=== PATIENT | female | born 1945 | race Caucasian/White ===

== ENCOUNTER 2018-04-14 10:49 | Inpatient (IN) | payer MEDICARE, BC ==
[2018-04-14] MEDS ORDERED: SODIUM CHLORIDE 0.9% 500 ML 500 ML IV STA (11:16)
[2018-04-14] MEDS ORDERED: ONDANSETRON 4 MG/2 ML VIAL IVP STA ×2 (11:17→14:29)
[2018-04-14] MEDS ORDERED: LABETALOL SYRINGE 5 MG/ML IVP STA (11:17)
--- NOTE | 2018-04-14 11:42 | ED ---
Recheck HPI - General Source: patient, RN notes reviewed Mode of arrival: wheelchair Limitations: no limitations <Juan Holm - Last Filed: 04/14/18 13:08> <Eliazar Gustafson - Last Filed: 04/14/18 13:35> - General Chief Complaint: Recheck/Abnormal Lab/Rx Stated Complaint: HIGH BLOOD PRESSURE, CHEST PAIN Time Seen by Provider: 04/14/18 11:08 - History of Present Illness Initial Comments: 72-year-old female sent emergency Department with chief complaint of hypertension. Patient states that she went to her dentist and had a tooth extracted. Her blood pressure was elevated at time but they still perform this procedure. Patient states her son checked her blood pressure this morning and it was 220/120. Patient states that she does not have a history of hypertension though she has not seen her PCP in 5 years. Patient then no current medications other than tell with codeine that was given to her along with ibuprofen by the dentist. Patient states she feels nauseated at this time. She did have some chest discomfort last night. She has no current shortness breath, headache or dizziness. She states she does feel slightly off. Eyes back pain, neck pain, jaw pain or extremity pain (Juan Holm) - Related Data Home Medications Medication Instructions Recorded Confirmed No Known Home Medications 04/14/18 04/14/18 Allergies Allergy/AdvReac Type Severity Reaction Status Date / Time No Known Allergies Allergy Verified 04/14/18 12:02 Review of Systems ROS Other: All systems not noted in ROS Statement are negative. <Juan Holm - Last Filed: 04/14/18 13:08> ROS Other: All systems not noted in ROS Statement are negative. <Eliazar Gustafson - Last Filed: 04/14/18 13:35> ROS Statement: Those systems with pertinent positive or pertinent negative responses have been documented in the HPI. Past Medical History Past Medical History: No Reported History History of Any Multi-Drug Resistant Organisms: None Reported Past Surgical History: Cholecystectomy Past Psychological History: No Psychological Hx Reported Smoking Status: Never smoker Past Alcohol Use History: None Reported Past Drug Use History: None Reported <Juan Holm - Last Filed: 04/14/18 13:08> General Exam Limitations: no limitations General appearance: alert, in no apparent distress Head exam: Present: atraumatic, normocephalic, normal inspection ENT exam: Present: mucous membranes moist. Absent: normal exam, normal oropharynx (Recent tooth extraction right upper) Neck exam: Present: normal inspection, full ROM. Absent: tenderness, meningismus, lymphadenopathy Respiratory exam: Present: normal lung sounds bilaterally. Absent: respiratory distress, wheezes, rales, rhonchi, stridor Cardiovascular Exam: Present: regular rate, normal rhythm, normal heart sounds. Absent: systolic murmur, diastolic murmur, rubs, gallop, clicks GI/Abdominal exam: Present: soft, normal bowel sounds. Absent: distended, tenderness, guarding, rebound, rigid Neurological exam: Present: alert, oriented X3, CN II-XII intact Skin exam: Present: warm, dry, intact, normal color. Absent: rash <Juan Holm - Last Filed: 04/14/18 13:08> Course <Juan Holm - Last Filed: 04/14/18 13:08> <Eliazar Gustafson - Last Filed: 04/14/18 13:35> Vital Signs 04/14/18 04/14/18 04/14/18 10:55 11:38 11:43 Temperature 97.8 F Pulse Rate 74 71 Pulse Rate [ 68 Heel Gouger ] Respiratory 16 16 Rate Blood Pressure 217/129 193/120 O2 Sat by Pulse 99 97 Oximetry 04/14/18 12:39 Temperature Pulse Rate 56 L Pulse Rate [ Heel Gouger ] Respiratory 18 Rate Blood Pressure 203/99 O2 Sat by Pulse 95 Oximetry - Reevaluation(s) Reevaluation #1: 04/14/18 13:33 PA supervision: I proceeded [id number] evaluation the patient did discuss the findings with her family members. Patient does present with uncontrolled blood pressure. Physical exam is unremarkable. Heart tones are within normal limits. Blood pressure is elevated. Patient will be admitted I do agree with the assessment and plan. (Eliazar Gustafson) Medical Decision Making - Lab Data Result diagrams: 04/14/18 11:35 04/14/18 11:35 <Juan Holm - Last Filed: 04/14/18 13:08> - Lab Data Result diagrams: 04/14/18 11:35 04/14/18 11:35 <Eliazar Gustafson - Last Filed: 04/14/18 13:35> - Medical Decision Making 72-year-old female present for hypertension. Patient did have some chest discomfort last night. Patient chest pain-free at this time though be admitted for cardiac enzymes, hypertension urgency. Patient was given labetalol 20, hydralazine 10. Patient remains hypertensive (Juan Holm) - Lab Data Lab Results 04/14/18 04/14/18 04/14/18 Range/Units 11:35 11:35 11:35 WBC 7.7 (3.8-10.6) k/uL RBC 5.37 (3.80-5.40) m/uL Hgb 15.6 (11.4-16.0) gm/dL Hct 47.6 H (34.0-46.0) % MCV 88.7 (80.0-100.0) fL MCH 29.1 (25.0-35.0) pg MCHC 32.8 (31.0-37.0) g/dL RDW 13.5 (11.5-15.5) % Plt Count 245 (150-450) k/uL Neutrophils % 80 % Lymphocytes % 12 % Monocytes % 5 % Eosinophils % 1 % Basophils % 1 % Neutrophils # 6.2 (1.3-7.7) k/uL Lymphocytes # 0.9 L (1.0-4.8) k/uL Monocytes # 0.4 (0-1.0) k/uL Eosinophils # 0.1 (0-0.7) k/uL Basophils # 0.1 (0-0.2) k/uL PT (9.0-12.0) sec INR (<1.2) APTT (22.0-30.0) sec Sodium 141 (137-145) mmol/L Potassium 3.5 (3.5-5.1) mmol/L Chloride 103 (98-107) mmol/L Carbon Dioxide 25 (22-30) mmol/L Anion Gap 13 mmol/L BUN 21 H (7-17) mg/dL Creatinine 1.27 H (0.52-1.04) mg/dL Est GFR (CKD-EPI)AfAm 48 (>60 ml/min/1.73 sqM) Est GFR (CKD-EPI)NonAf 42 (>60 ml/min/1.73 sqM) Glucose 104 H (74-99) mg/dL Calcium 9.6 (8.4-10.2) mg/dL Magnesium 2.1 (1.6-2.3) mg/dL Total Bilirubin 2.0 H (0.2-1.3) mg/dL AST 23 (14-36) U/L ALT 26 (9-52) U/L Alkaline Phosphatase 107 (38-126) U/L Total Creatine Kinase 73 (30-135) U/L CK-MB (CK-2) 0.9 (0.0-2.4) ng/mL CK-MB (CK-2) Rel Index 1.2 Troponin I <0.012 (0.000-0.034) ng/mL Total Protein 7.5 (6.3-8.2) g/dL Albumin 4.5 (3.5-5.0) g/dL 04/14/18 Range/Units 11:35 WBC (3.8-10.6) k/uL RBC (3.80-5.40) m/uL Hgb (11.4-16.0) gm/dL Hct (34.0-46.0) % MCV (80.0-100.0) fL MCH (25.0-35.0) pg MCHC (31.0-37.0) g/dL RDW (11.5-15.5) % Plt Count (150-450) k/uL Neutrophils % % Lymphocytes % % Monocytes % % Eosinophils % % Basophils % % Neutrophils # (1.3-7.7) k/uL Lymphocytes # (1.0-4.8) k/uL Monocytes # (0-1.0) k/uL Eosinophils # (0-0.7) k/uL Basophils # (0-0.2) k/uL PT 10.0 (9.0-12.0) sec INR 0.9 (<1.2) APTT 22.7 (22.0-30.0) sec Sodium (137-145) mmol/L Potassium (3.5-5.1) mmol/L Chloride (98-107) mmol/L Carbon Dioxide (22-30) mmol/L Anion Gap mmol/L BUN (7-17) mg/dL Creatinine (0.52-1.04) mg/dL Est GFR (CKD-EPI)AfAm (>60 ml/min/1.73 sqM) Est GFR (CKD-EPI)NonAf (>60 ml/min/1.73 sqM) Glucose (74-99) mg/dL Calcium (8.4-10.2) mg/dL Magnesium (1.6-2.3) mg/dL Total Bilirubin (0.2-1.3) mg/dL AST (14-36) U/L ALT (9-52) U/L Alkaline Phosphatase (38-126) U/L Total Creatine Kinase (30-135) U/L CK-MB (CK-2) (0.0-2.4) ng/mL CK-MB (CK-2) Rel Index Troponin I (0.000-0.034) ng/mL Total Protein (6.3-8.2) g/dL Albumin (3.5-5.0) g/dL - EKG Data EKG Comments: EKG performed at 11:19sinus rhythm with rate 65. 176 QRS 86 QT/QTC 390/450 ( Juan Holm) Disposition <Juan Holm - Last Filed: 04/14/18 13:08> <Eliazar Gustafson - Last Filed: 04/14/18 13:35> Clinical Impression: Uncontrolled hypertension, Chest pain Disposition: ADMITTED IP TO THIS HOSP Condition: Fair
[2018-04-14 12:02] LABS: Basophils # (A) 0.1 k/uL (0-0.2); Basophils % (A) 1 %; Eosinophils # (A) 0.1 k/uL (0-0.7); Eosinophils % (A) 1 %; HCT 47.6 % (34.0-46.0); HGB 15.6 gm/dL (11.4-16.0); Lymphocytes # (A) 0.9 k/uL (1.0-4.8); Lymphocytes % (A) 12 %; MCH 29.1 pg (25.0-35.0); MCHC 32.8 g/dL (31.0-37.0); MCV 88.7 fL (80.0-100.0); Mean Platelet Volume 6.6; Monocytes # (A) 0.4 k/uL (0-1.0); Monocytes % (A) 5 %; Neutrophils # (A) 6.2 k/uL (1.3-7.7); Neutrophils % (A) 80 %; Platelet Count 245 k/uL (150-450); RBC 5.37 m/uL (3.80-5.40); RDW 13.5 % (11.5-15.5); WBC 7.7 k/uL (3.8-10.6)
[2018-04-14 12:10] LABS: INR 0.9 (<1.2); Partial Thromboplastin Time 22.7 sec (22.0-30.0)
[2018-04-14 12:12] LABS: Albumin 4.5 g/dL (3.5-5.0); Calcium 9.6 mg/dL (8.4-10.2); Magnesium 2.1 mg/dL (1.6-2.3); Potassium 3.5 mmol/L (3.5-5.1); Total Protein 7.5 g/dL (6.3-8.2)
[2018-04-14 12:21] LABS: Creatine Kinase 73 U/L (30-135)
[2018-04-14 12:34] LABS: Creatine Kinase MB 0.9 ng/mL (0.0-2.4); Troponin I <0.012 ng/mL (0.000-0.034)
[2018-04-14] MEDS ORDERED: hydrALAZINE HCL 20 MG/ML 1 ML VIAL IVP STA (12:41)
--- NOTE | 2018-04-14 12:57 | XR ---
EXAMINATION TYPE: XR chest 2V DATE OF EXAM: 04/14/2018 COMPARISON: NONE HISTORY: Chest pain and vomiting TECHNIQUE: Frontal and lateral views of the chest are obtained. FINDINGS: Patient is rotated. There are prominent lung volumes which may be indicative of underlying COPD. The aorta is dense and ectatic, tortuous. No evident airspace disease, pneumothorax, or pleural effusion. There are overlying cardiac leads. Minimal patchy densities at the costophrenic angles may reflect scarring or atelectasis. IMPRESSION: No acute cardiopulmonary process. Additional findings above.
[2018-04-14] MEDS ORDERED: ASPIRIN 81 MG PO STA (13:10)
[2018-04-14] MEDS ORDERED: NITROGLYCERIN SL TABS 0.4 MG TAB SUBLINGUAL PRN (13:10)
[2018-04-14] MEDS ORDERED: HEPARIN SODIUM,PORCINE 5,000 UNIT/ML 1 ML VIAL IV ONE (13:10)
--- NOTE | 2018-04-14 13:32 | P.HPIM ---
History of Present Illness This is a pleasant 72 years old female with no significant past medical history. Presents because of high blood pressure. Patient knew About her high blood pressure when she visited her dentist for her right upper tooth extraction. It was noticed that she had high blood pressure. Her son check her blood pressure this morning it was 220/120, so she decided to come to emergency room. Patient also complained from chest pain yesterday that lasted for short time. Central nonradiating nonspecific chest pain that woke her up from sleep associated with nausea, possible vomiting per [id number] at bedside however patient denies sweating. No dizziness or syncope. No dyspnea. Currently her chest pain is resolved. She is remote exit smoker many many years when she was young. No alcohol or illicit drugs. EKG showing sinus rhythm with sinus arrhythmia at 65 BPM. QTC of 405. No significant ST-T changes. Chest x-ray: No significant acute changes, possible COPD. In the emergency room patient got labetalol and hydralazine. Also she got aspirin and heparin. and started on heparin drip. Review of Systems CONSTITUTIONAL: No fever, no malaise, no fatigue. HEENT: No recent visual problems or hearing problems. Denied any sore throat. CARDIOVASCULAR: No orthopnea, PND, no palpitations, no syncope. PULMONARY: No shortness of breath, no cough, no hemoptysis. GASTROINTESTINAL: No diarrhea, no nausea, no vomiting, no abdominal pain. Normoactive bowel sounds. NEUROLOGICAL: No headaches, no weakness, no numbness. HEMATOLOGICAL: Denies any bleeding or petechiae. GENITOURINARY: Denies any burning micturition, frequency, or urgency. MUSCULOSKELETAL/RHEUMATOLOGICAL: Denies any joint pain, swelling, or any muscle pain. ENDOCRINE: Denies any polyuria or polydipsia. Past Medical History Past Medical History: No Reported History History of Any Multi-Drug Resistant Organisms: None Reported Past Surgical History: Cholecystectomy Past Psychological History: No Psychological Hx Reported Smoking Status: Never smoker Past Alcohol Use History: None Reported Past Drug Use History: None Reported Medications and Allergies Home Medications Medication Instructions Recorded Confirmed Type No Known Home Medications 04/14/18 04/14/18 History Allergies Allergy/AdvReac Type Severity Reaction Status Date / Time No Known Allergies Allergy Verified 04/14/18 12:02 Physical Exam Vitals: Vital Signs Temp Pulse Pulse Resp BP Pulse Ox 04/14/18 12:39 56 L 18 203/99 95 04/14/18 11:43 68 04/14/18 11:38 71 16 193/120 97 04/14/18 10:55 97.8 F 74 16 217/129 99 Intake and Output 04/13/18 04/14/18 04/14/18 22:59 06:59 14:59 Other: Weight 77.111 kg GENERAL: The patient is alert and oriented x3, not in any acute distress. Well developed, well nourished. HEENT: Pupils are round and equally reacting to light. EOMI. No scleral icterus. No conjunctival pallor. Normocephalic, atraumatic. No pharyngeal erythema. No thyromegaly. CARDIOVASCULAR: S1 and S2 present. No murmurs, rubs, or gallops. PULMONARY: Chest is clear to auscultation, no wheezing or crackles. ABDOMEN: Soft, nontender, nondistended, normoactive bowel sounds. No palpable organomegaly. MUSCULOSKELETAL: No joint swelling or deformity. EXTREMITIES: No cyanosis, clubbing, or pedal edema. NEUROLOGICAL: Gross neurological examination did not reveal any focal deficits. SKIN: No rashes. Results CBC & Chem 7: 04/14/18 11:35 04/14/18 11:35 Labs: Abnormal Lab Results - Last 24 Hours (Table) 04/14/18 04/14/18 Range/Units 11:35 11:35 Hct 47.6 H (34.0-46.0) % Lymphocytes # 0.9 L (1.0-4.8) k/uL BUN 21 H (7-17) mg/dL Creatinine 1.27 H (0.52-1.04) mg/dL Glucose 104 H (74-99) mg/dL Total Bilirubin 2.0 H (0.2-1.3) mg/dL Assessment and Plan Assessment: Hypertensive urgency Essential hypertension, no diagnoses Chest pain, rule out cardiac causes Plan: This is a pleasant 72 years old female who presents because of hypertensive urgency and chest pain. Admits patient with cardiology consultation. Serial troponins and EKG. continue with blood pressure medication. Check lipid panel. Labs and medication were reviewed.. Continue same treatment. Continue with symptomatic treatment. Resume home medication. Monitor lytes and vitals. DVT and GI prophylaxis. Further recommendations of the clinical course of the patient DVT prophylaxis: Subcutaneous heparin GI Prophylaxis: Pepcid Prognosis is guarded
[2018-04-14] MEDS: HEPARIN SOD,PORK IN 0.45% NACL 25,000 UNIT in 0.45% NACL 1 500ML.BAG IV SCH (13:53)
[2018-04-14 18:42] LABS: Creatine Kinase 71 U/L (30-135)
[2018-04-14 18:54] LABS: Troponin I <0.012 ng/mL (0.000-0.034)
[2018-04-14] MEDS: ACETAMINOPHEN TAB 325 MG TAB PO PRN (19:57)
[2018-04-14] MEDS: hydrALAZINE HCL 25 MG TAB PO PRN (20:06)
[2018-04-15] MEDS: ACETAMINOPHEN TAB 325 MG TAB PO PRN (02:21)
[2018-04-15 02:37] LABS: Mean Platelet Volume 6.7; Platelet Count 239 k/uL (150-450)
[2018-04-15 02:52] LABS: Cholesterol 225 mg/dL (<200); HDL Cholesterol 63 mg/dL (40-60); LDL Cholesterol,Calculated 149 mg/dL (0-99); Triglycerides 65 mg/dL (<150)
[2018-04-15 02:59] LABS: Creatine Kinase 59 U/L (30-135)
[2018-04-15 03:12] LABS: Creatine Kinase MB 0.8 ng/mL (0.0-2.4); Troponin I <0.012 ng/mL (0.000-0.034)
[2018-04-15] MEDS: hydrALAZINE HCL 25 MG TAB PO PRN ×2 (03:31→19:49)
--- NOTE | 2018-04-15 08:45 | P.CRDCN ---
History of Present Illness Consult date: 04/15/18 Requesting physician: Cordell E Sheet Consult reason: chest pain, hypertension Chief complaint: htn History of present illness: This is a pleasant 72-year-old female with prior documented history of hypertension, she states that she used to take blood pressure medications but her blood pressure went quite low and ultimately she was taken off of them. She is a nondiabetic, no hyperlipidemia, nonsmoker, no alcohol, she states that she walks and rides her bike daily. Patient recently was having some issues with an abscess to her, last week had a tooth pulled, she had been on amoxicillin prior to that. At the time of our appointment when she had her tooth pulled, she states that her blood pressure was running high. She went for a follow-up at her dentist, and again her blood pressure was noted to be quite high, states that she tried to get into her primary care doctor's office, Dr. Stokes, or into the walk-in clinic, but was directed to come to the emergency room for further evaluation. Patient does state that when her blood pressure was extremely high she noticed some chest pressure and heaviness, but states that she felt that her entire body as well. Her blood pressure on arrival here was 217/129, heart rate in the 70s, 99% on room air. Blood pressure this morning when he 2/80, heart rate in the 70s, 97% on room air. Patient does state that she has been under a considerable amount of stress for the past few years. White blood cell count 7.7, hemoglobin 15.6, platelet count 239. Sodium 141, potassium 3.5, BUN 21, creatinine 1.2. Troponins are negative 3. Cholesterol is 225, LDL 149 and HDL 63. At the time of my examination this morning, patient actually feels quite well and is hoping to potentially be discharged home today. Past Medical History Past Medical History: Hypertension, Osteoarthritis (OA) Additional Past Medical History / Comment(s): pt stated 6 years ago was taking meds for hyertension but was taken off of it because bp went to low. History of Any Multi-Drug Resistant Organisms: None Reported Past Surgical History: Cholecystectomy, Tubal Ligation Additional Past Surgical History / Comment(s): 04/11/18 had tooth extraction Past Anesthesia/Blood Transfusion Reactions: No Reported Reaction Additional Past Anesthesia/Blood Transfusion Reaction / Comment(s): "has never received any blood transfusions" Smoking Status: Former smoker - Past Family History Mother Additional Family Medical History / Comment(s): from "hardening of the arteris" Father Family Medical History: CVA/TIA Medications and Allergies Home Medications Medication Instructions Recorded Confirmed Type No Known Home Medications 04/14/18 04/14/18 History Allergies Allergy/AdvReac Type Severity Reaction Status Date / Time No Known Allergies Allergy Verified 04/14/18 12:02 Physical Exam Vitals: Vital Signs Temp Pulse Pulse Resp BP BP Pulse Ox 04/15/18 03:21 98.2 F 72 18 182/86 97 04/15/18 00:00 68 18 172/80 96 04/14/18 20:00 98.6 F 63 18 178/85 95 04/14/18 16:00 97.7 F 72 16 171/83 96 04/14/18 15:28 98.2 F 69 16 176/108 95 04/14/18 14:42 66 18 182/94 95 04/14/18 13:48 63 16 187/89 96 04/14/18 12:39 56 L 18 203/99 95 04/14/18 11:43 68 04/14/18 11:38 71 16 193/120 97 04/14/18 10:55 97.8 F 74 16 217/129 99 Intake and Output 04/14/18 04/15/18 04/15/18 22:59 06:59 14:59 Intake Total 156.867 84 222 Balance 156.867 84 222 Intake: IV 36 84 Heparin Sod,Pork in 0.45% 36 84 NaCl 25,000 unit In 0.45 % NaCl 1 500ml.bag @ 12 UNITS/KG/HR 18.5 mls/hr IV .Q24H NAOMY Rx#: [id number] Intake, IV Titration 120.867 Amount Heparin Sod,Pork in 0.45% 120.867 NaCl 25,000 unit In 0.45 % NaCl 1 500ml.bag @ 12 UNITS/KG/HR 18.5 mls/hr IV .Q24H NAOMY Rx#: [id number] Oral 222 Other: # Voids 1 1 Weight 75.9 kg PHYSICAL EXAMINATION: GENERAL: 72-year-old female in no acute distress at the time of my examination HEENT: Head is atraumatic, normocephalic. Pupils equal, round. Sclera anicteric. Conjunctiva are clear. Mucous membranes of the mouth are moist. Neck is supple. There is no elevated jugular venous pressure. No carotid bruit is heard. HEART EXAMINATION: Heart S1 and S2 systolic murmur is heard. CHEST EXAMINATION: Lungs are clear to auscultation and precussion. No chest wall tenderness is noted on palpation or with deep breathing. ABDOMEN: Soft, nontender. Bowel sounds are heard. No organomegaly noted. EXTREMITIES: 2+ peripheral pulses with no evidence of peripheral edema and no calf tenderness noted. NEUROLOGIC patient is awake, alert and oriented 3 . . Results 04/15/18 02:10 04/14/18 11:35 Cardiac Enzymes 04/14/18 04/14/18 04/14/18 Range/Units 11:35 11:35 17:47 AST 23 (14-36) U/L CK-MB (CK-2) 0.9 1.0 (0.0-2.4) ng/mL Troponin I <0.012 <0.012 (0.000-0.034) ng/mL 04/15/18 Range/Units 02:10 AST (14-36) U/L CK-MB (CK-2) 0.8 (0.0-2.4) ng/mL Troponin I <0.012 (0.000-0.034) ng/mL Coagulation 04/14/18 04/14/18 04/15/18 Range/Units 11:35 19:57 02:10 PT 10.0 (9.0-12.0) sec APTT 22.7 82.9 H 61.3 H (22.0-30.0) sec Lipids 04/15/18 Range/Units 02:10 Triglycerides 65 (<150) mg/dL Cholesterol 225 H (<200) mg/dL HDL Cholesterol 63 H (40-60) mg/dL CBC 04/14/18 04/15/18 Range/Units 11:35 02:10 WBC 7.7 (3.8-10.6) k/uL RBC 5.37 (3.80-5.40) m/uL Hgb 15.6 (11.4-16.0) gm/dL Hct 47.6 H (34.0-46.0) % Plt Count 245 239 (150-450) k/uL Comprehensive Metabolic Panel 04/14/18 Range/Units 11:35 Sodium 141 (137-145) mmol/L Potassium 3.5 (3.5-5.1) mmol/L Chloride 103 (98-107) mmol/L Carbon Dioxide 25 (22-30) mmol/L BUN 21 H (7-17) mg/dL Creatinine 1.27 H (0.52-1.04) mg/dL Glucose 104 H (74-99) mg/dL Calcium 9.6 (8.4-10.2) mg/dL AST 23 (14-36) U/L ALT 26 (9-52) U/L Alkaline Phosphatase 107 (38-126) U/L Total Protein 7.5 (6.3-8.2) g/dL Albumin 4.5 (3.5-5.0) g/dL Current Medications Generic Name Dose Route Start Last Admin Trade Name Freq PRN Reason Stop Dose Admin Acetaminophen 650 mg 04/14/18 18:32 04/15/18 02:21 Tylenol Tab PO 650 mg Q6HR PRN Administration Fever and/ or Pain Aspirin 325 mg 04/15/18 09:00 Aspirin PO DAILY [facility] Hydralazine HCl 25 mg 04/14/18 13:31 04/15/18 03:31 Apresoline PO 25 mg TID PRN Administration Blood Pressure - High Heparin Sodium/Sodium Chloride 500 mls @ 18.5 mls/hr 04/14/18 13:15 04/14/18 20:25 25,000 unit/ Sodium Chloride IV 10 units/kg/hr .Q24H NAOMY 15.42 mls/hr Titration Protocol 12 UNITS/KG/HR Metoprolol Tartrate 25 mg 04/15/18 09:00 Lopressor PO BID NAOMY Nitroglycerin 0.4 mg 04/14/18 13:10 Nitrostat SUBLINGUAL Q5M PRN Chest Pain Intake and Output 04/14/18 04/15/18 04/15/18 22:59 06:59 14:59 Intake Total 156.867 84 222 Balance 156.867 84 222 Intake: IV 36 84 Heparin Sod,Pork in 0.45% 36 84 NaCl 25,000 unit In 0.45 % NaCl 1 500ml.bag @ 12 UNITS/KG/HR 18.5 mls/hr IV .Q24H NAOMY Rx#: [id number] Intake, IV Titration 120.867 Amount Heparin Sod,Pork in 0.45% 120.867 NaCl 25,000 unit In 0.45 % NaCl 1 500ml.bag @ 12 UNITS/KG/HR 18.5 mls/hr IV .Q24H NAOMY Rx#: [id number] Oral 222 Other: # Voids 1 1 Weight 75.9 kg 04/15/18 02:10 04/14/18 11:35 EKG Interpretations (text) EKG shows a normal sinus rhythm evidence of left ventricular hypertrophy Assessment and Plan Plan: Assessment and plan #1 hypertensive urgency #2 history of hypertension, patient used to be on blood pressure medications but states that ultimately she stopped taking them because her blood pressure was low. #3 chest pain, atypical for acute coronary syndrome. Troponins have been negative 3. EKG shows normal sinus rhythm with evidence of left ventricular hypertrophy. #4 mild renal insufficiency #5 hyperlipidemia, untreated Plan We will obtain an echocardiogram with Doppler study. We will also start the patient on Norvasc, beta jordan was initiated in the emergency room. Optimize blood pressure control. Once her blood pressure stabilized, we recommend to the patient to have a stress test. We will also start the patient on a statin. Further recommendations to follow. DNP note has been reviewed, I agree with a documented findings and plan of care. Patient was seen and examined.
[2018-04-15] MEDS ORDERED: ASPIRIN 325 MG TAB PO SCH (09:00)
[2018-04-15] MEDS ORDERED: amLODIPine 5 MG TAB PO SCH (09:00)
[2018-04-15] MEDS: ASPIRIN 81 MG PO SCH (09:11)
[2018-04-15] MEDS: METOPROLOL TARTRATE 25 MG TAB PO SCH ×2 (09:11→19:53)
--- NOTE | 2018-04-15 11:18 | ECHOF ---
Referral Reason:htn MEASUREMENTS -------- HEIGHT: 157.5 cm WEIGHT: 74.8 kg BP: RVIDd: 3.1 cm (< 3.3) IVSd: 1.1 cm (0.6 - 1.1) LVIDd: 3.7 cm (3.9 - 5.3) LVPWd: 1.4 cm (0.6 - 1.1) IVSs: 1.6 cm LVIDs: 3.2 cm LVPWs: 1.3 cm LA Diam: 3.3 cm (2.7 - 3.8) LAESV Index (A-L): 27.81 ml/m Ao Diam: 3.4 cm (2.0 - 3.7) AV Cusp: 1.5 cm (1.5 - 2.6) MV EXCURSION: 12.495 mm (> 18.000) MV EF SLOPE: 31 mm/s (70 - 150) EPSS: 0.6 cm MV E Nicho: 0.48 m/s MV DecT: 487 ms MV A Nicho: 0.96 m/s MV E/A Ratio: 0.50 AR PHT: 643 ms RAP: 5.00 mmHg RVSP: 30.69 mmHg FINDINGS -------- Sinus rhythm. This was a technically adequate study. The left ventricular size is normal. There is borderline concentric left ventricular hypertrophy. Overall left ventricular systolic function is normal with, an EF between 55 - 60 %. The right ventricle is normal in size. The left atrial size is normal. Normal LA size by volume 22+/-6 ml/m2. The right atrial size is normal. The aortic valve is trileaflet and appears structurally normal. There is mild aortic regurgitation. The mitral valve is normal. Mild mitral regurgitation is present. Mild tricuspid regurgitation present. Right ventricular systolic pressure is normal at < 35 mmHg. The right ventricular systolic pressure, as measured by Doppler, is 30.69mmHg. There is no pulmonic regurgitation present. The aortic root size is normal. There is no pericardial effusion. CONCLUSIONS -------- 1. Sinus rhythm. 2. The left ventricular size is normal. 3. There is borderline concentric left ventricular hypertrophy. 4. Overall left ventricular systolic function is normal with, an EF between 55 - 60 %. 5. The left atrial size is normal. 6. There is mild aortic regurgitation. 7. Mild mitral regurgitation is present. 8. Mild tricuspid regurgitation present. 9. Right ventricular systolic pressure is normal at < 35 mmHg. 10. There is no pulmonic regurgitation present. 11. The aortic root size is normal. 12. There is no pericardial effusion. [employer]CTOR [employer]: Vikki Olea RDCS
--- NOTE | 2018-04-15 12:50 | CDI ---
un Documentation Clarification Form Date: 04/15/2018 12:40:45 PM From: Sandra Espinosa RN, CCDS Admit Date: 04/14/2018 1:09:00 PM Patient Name: Caryl Mariano Visit Number: [id number] ATTENTION: The Clinical Documentation Specialists (CDI) and [facility] Coding Staff appreciate your assistance in clarifying documentation. Please respond to the clarification below the line at the bottom and electronically sign. The CDI & [facility] Coding staff will review the response and follow-up if needed. Please note: Queries are made part of the Legal Health Record. If you have any questions, please contact the author of this message via ITS. Dr. Cordell Lakhani Renal insuffiency was documented in the Cardiology Consult and requires further specificity. History/Risk Factors: Patients baseline BUN/CR/GFR: no baseline available, no other encounters at this facility Clinical Indicators: Current BUN/Cr/GFR: 30/05. Treatment: IVF: 500 CC fluid bolus In order to capture the severity of condition, please clarify if the condition signifies: Acute renal failure, Please specify etiology (if known): Cortical Necrosis Medullary Necrosis Tubular Necrosis Acute kidney injury Acute on chronic renal failure CKD Stage 1 GFR >90 CKD Stage 2 GFR 60-89 CKD Stage 3 GFR 30-59 CKD Stage 4 GFR 15-29 CKD Stage 5 GFR <15 Chronic renal failure/Chronic Kidney disease (CKD) please stage (if known): CKD Stage 1 GFR >90 CKD Stage 2 GFR 60-89 CKD Stage 3 GFR 30-59 CKD Stage 4 GFR 15-29 CKD Stage 5 GFR <15 ESRD Other, please specify Unable to determine unable to determine MTDD
--- NOTE | 2018-04-15 13:45 | P.PN ---
Subjective On-call hospitalist covering for Dr. Stokes. This is a pleasant 72 years old female with no significant past medical history. Presents because of high blood pressure. Patient knew About her high blood pressure when she visited her dentist for her right upper tooth extraction. It was noticed that she had high blood pressure. Her son check her blood pressure this morning it was 220/120, so she decided to come to emergency room. Patient also complained from chest pain yesterday that lasted for short time. Central nonradiating nonspecific chest pain that woke her up from sleep associated with nausea, possible vomiting per [id number] at bedside however patient denies sweating. No dizziness or syncope. No dyspnea. Currently her chest pain is resolved. She is remote exit smoker many many years when she was young. No alcohol or illicit drugs. EKG showing sinus rhythm with sinus arrhythmia at 65 BPM. QTC of 405. No significant ST-T changes. Chest x-ray: No significant acute changes, possible COPD. In the emergency room patient got labetalol and hydralazine. Also she got aspirin and heparin. and started on heparin drip. 03/16/2018 Patient seen and examined today at bedside in the select unit. No chest pain or dyspnea. No headache. However patient blood pressure still uncontrolled and this morning was 174/84-193/92. Patient blood pressure still uncontrolled and she's been evaluated by public health veterinarian. She's continue on Lopressor and Norvasc. Post blood pressure controlled she might consider for stress test. Statin was started also. I offered for the patient to make appointments however she declined stating that she wants to first do know the final diagnosis and she will call and make appointment by herself. Patient wears to [employer]. Review of Systems CONSTITUTIONAL: No fever, no malaise, no fatigue. HEENT: No recent visual problems or hearing problems. Denied any sore throat. CARDIOVASCULAR: No orthopnea, PND, no palpitations, no syncope. PULMONARY: No shortness of breath, no cough, no hemoptysis. GASTROINTESTINAL: No diarrhea, no nausea, no vomiting, no abdominal pain. Normoactive bowel sounds. NEUROLOGICAL: No headaches, no weakness, no numbness. HEMATOLOGICAL: Denies any bleeding or petechiae. GENITOURINARY: Denies any burning micturition, frequency, or urgency. MUSCULOSKELETAL/RHEUMATOLOGICAL: Denies any joint pain, swelling, or any muscle pain. ENDOCRINE: Denies any polyuria or polydipsia. Objective - Vital Signs Vital signs: Vital Signs Temp 98.2 F 04/15/18 11:47 Pulse 51 L 04/15/18 11:47 Resp 20 04/15/18 11:47 BP 174/84 04/15/18 11:47 Pulse Ox 95 04/15/18 11:47 Intake & Output 04/14/18 04/15/18 04/15/18 18:59 06:59 18:59 Intake Total 240.867 342 Balance 240.867 342 Weight 77.111 kg 75.9 kg Intake: IV 120 Heparin Sod,Pork in 0.45% 120 NaCl 25,000 unit In 0.45 % NaCl 1 500ml.bag @ 12 UNITS/KG/HR 18.5 mls/hr IV .Q24H NAOMY Rx#: [id number] Intake, IV Titration 120.867 Amount Heparin Sod,Pork in 0.45% 120.867 NaCl 25,000 unit In 0.45 % NaCl 1 500ml.bag @ 12 UNITS/KG/HR 18.5 mls/hr IV .Q24H NAOMY Rx#: [id number] Oral 342 Other: # Voids 1 1 - Exam GENERAL: The patient is alert and oriented x3, not in any acute distress. Well developed, well nourished. HEENT: Pupils are round and equally reacting to light. EOMI. No scleral icterus. No conjunctival pallor. Normocephalic, atraumatic. No pharyngeal erythema. No thyromegaly. CARDIOVASCULAR: S1 and S2 present. No murmurs, rubs, or gallops. PULMONARY: Chest is clear to auscultation, no wheezing or crackles. ABDOMEN: Soft, nontender, nondistended, normoactive bowel sounds. No palpable organomegaly. MUSCULOSKELETAL: No joint swelling or deformity. EXTREMITIES: No cyanosis, clubbing, or pedal edema. NEUROLOGICAL: Gross neurological examination did not reveal any focal deficits. SKIN: No rashes. - Labs CBC & Chem 7: 04/15/18 02:10 04/14/18 11:35 Labs: Abnormal Lab Results - Last 24 Hours (Table) 04/14/18 04/15/18 04/15/18 Range/Units 19:57 02:10 02:10 APTT 82.9 H 61.3 H (22.0-30.0) sec Cholesterol 225 H (<200) mg/dL LDL Cholesterol, Calc 149 H (0-99) mg/dL HDL Cholesterol 63 H (40-60) mg/dL Assessment and Plan Assessment: Hypertensive urgency Essential hypertension, Chest pain, rule out cardiac causes Mild kidney injury, unknown baseline and possibly acute. Consent hyperlipidemia Plan: This is a pleasant 72 years old female who presents because of hypertensive urgency and chest pain. Admits patient with cardiology consultation. Serial troponins and EKG. continue with blood pressure medication. lipid panel: Elevated. She was started on statin. Labs and medication were reviewed.. Continue same treatment. Continue with symptomatic treatment. Resume home medication. Monitor lytes and vitals. DVT and GI prophylaxis. Further recommendations of the clinical course of the patient DVT prophylaxis: Subcutaneous heparin GI Prophylaxis: Pepcid Prognosis is guarded
[2018-04-15 14:59] LABS: Calcium 9.3 mg/dL (8.4-10.2); Potassium 3.2 mmol/L (3.5-5.1)
[2018-04-15] MEDS: HYDROCHLOROTHIAZIDE 25 MG TAB PO SCH (15:37)
[2018-04-15] MEDS ORDERED: amLODIPine 5 MG TAB PO STA (18:15)
[2018-04-15] MEDS: HEPARIN SOD,PORK IN 0.45% NACL 25,000 UNIT in 0.45% NACL 1 500ML.BAG IV SCH (20:06)
[2018-04-16 07:35] LABS: Basophils # (A) 0.1 k/uL (0-0.2); Basophils % (A) 1 %; Eosinophils # (A) 0.1 k/uL (0-0.7); Eosinophils % (A) 2 %; HCT 46.4 % (34.0-46.0); HGB 15.2 gm/dL (11.4-16.0); Lymphocytes # (A) 1.2 k/uL (1.0-4.8); Lymphocytes % (A) 18 %; MCH 29.5 pg (25.0-35.0); MCHC 32.7 g/dL (31.0-37.0); MCV 90.3 fL (80.0-100.0); Mean Platelet Volume 7.3; Monocytes # (A) 0.5 k/uL (0-1.0); Monocytes % (A) 7 %; Neutrophils # (A) 4.6 k/uL (1.3-7.7); Neutrophils % (A) 70 %; Platelet Count 243 k/uL (150-450); RBC 5.14 m/uL (3.80-5.40); RDW 13.5 % (11.5-15.5); WBC 6.6 k/uL (3.8-10.6)
[2018-04-16 07:47] LABS: Calcium 9.3 mg/dL (8.4-10.2); Potassium 3.6 mmol/L (3.5-5.1)
[2018-04-16] MEDS: amLODIPine 10 MG TAB PO SCH (08:28)
[2018-04-16] MEDS: METOPROLOL TARTRATE 25 MG TAB PO SCH (08:28)
[2018-04-16] MEDS: HYDROCHLOROTHIAZIDE 25 MG TAB PO SCH (08:29)
[2018-04-16] MEDS: ASPIRIN 81 MG PO SCH (08:29)
--- NOTE | 2018-04-16 10:08 | P.PN ---
Subjective On-call hospitalist covering for Dr. Stokes. This is a pleasant 72 years old female with no significant past medical history. Presents because of high blood pressure. Patient knew About her high blood pressure when she visited her dentist for her right upper tooth extraction. It was noticed that she had high blood pressure. Her son check her blood pressure this morning it was 220/120, so she decided to come to emergency room. Patient also complained from chest pain yesterday that lasted for short time. Central nonradiating nonspecific chest pain that woke her up from sleep associated with nausea, possible vomiting per [id number]-[id number] at bedside however patient denies sweating. No dizziness or syncope. No dyspnea. Currently her chest pain is resolved. She is remote exit smoker many many years when she was young. No alcohol or illicit drugs. EKG showing sinus rhythm with sinus arrhythmia at 65 BPM. QTC of 405. No significant ST-T changes. Chest x-ray: No significant acute changes, possible COPD. In the emergency room patient got labetalol and hydralazine. Also she got aspirin and heparin. and started on heparin drip. 04/15/2018 Patient seen and examined today at bedside in the select unit. No chest pain or dyspnea. No headache. However patient blood pressure still uncontrolled and this morning was 174/84-193/92. Patient blood pressure still uncontrolled and she's been evaluated by double reamer operator. She's continue on Lopressor and Norvasc. Post blood pressure controlled she might consider for stress test. Statin was started also. I offered for the patient to make appointments however she declined stating that she wants to first do know the final diagnosis and she will call and make appointment by herself. Patient wears to [employer] . 04/16/2018 Patients with no more chest pain or dyspnea. Her blood pressure still on the high side but better than when she came in, this morning was 148/84. With heart rate 62. She is saturating 94% on room air. Patient agrees with the hospitalization for now however she was to switch her PCP. And she told me her daughters trying to find one that she doesn't want help from the staff when offered. Patient is 1. staff to make appointments for her history that she wants to make her own appointments. She has history of right upper first molar tooth extraction and she's been told by her dentist she had some abscess there she was treated with amoxicillin as per patient, L area does not look tender or inflamed under my examination. I offered to give her antibiotics patient declined. Cardiology also following the patient and further workup still pending. Creatinine stable at 1.1 Review of Systems CONSTITUTIONAL: No fever, no malaise, no fatigue. HEENT: No recent visual problems or hearing problems. Denied any sore throat. CARDIOVASCULAR: No orthopnea, PND, no palpitations, no syncope. PULMONARY: No shortness of breath, no cough, no hemoptysis. GASTROINTESTINAL: No diarrhea, no nausea, no vomiting, no abdominal pain. Normoactive bowel sounds. NEUROLOGICAL: No headaches, no weakness, no numbness. HEMATOLOGICAL: Denies any bleeding or petechiae. GENITOURINARY: Denies any burning micturition, frequency, or urgency. MUSCULOSKELETAL/RHEUMATOLOGICAL: Denies any joint pain, swelling, or any muscle pain. ENDOCRINE: Denies any polyuria or polydipsia. Objective - Vital Signs Vital signs: Vital Signs Temp 98.7 F 04/16/18 08:00 Pulse 62 04/16/18 08:00 Resp 17 04/16/18 08:00 BP 148/84 04/16/18 08:00 Pulse Ox 94 L 04/16/18 09:19 Intake & Output 04/15/18 04/16/18 04/16/18 18:59 06:59 18:59 Intake Total 582 240 222 Output Total 600 Balance -18 240 222 Weight 75.2 kg Intake: Oral 582 240 222 Output: Urine 600 Other: # Voids 2 1 - Exam GENERAL: The patient is alert and oriented x3, not in any acute distress. Well developed, well nourished. HEENT: Pupils are round and equally reacting to light. EOMI. No scleral icterus. No conjunctival pallor. Normocephalic, atraumatic. No pharyngeal erythema. No thyromegaly. CARDIOVASCULAR: S1 and S2 present. No murmurs, rubs, or gallops. PULMONARY: Chest is clear to auscultation, no wheezing or crackles. ABDOMEN: Soft, nontender, nondistended, normoactive bowel sounds. No palpable organomegaly. MUSCULOSKELETAL: No joint swelling or deformity. EXTREMITIES: No cyanosis, clubbing, or pedal edema. NEUROLOGICAL: Gross neurological examination did not reveal any focal deficits. SKIN: No rashes. - Labs CBC & Chem 7: 04/16/18 06:30 04/16/18 06:30 Labs: Abnormal Lab Results - Last 24 Hours (Table) 04/15/18 04/16/18 04/16/18 Range/Units 13:52 06:30 06:30 Hct 46.4 H (34.0-46.0) % Potassium 3.2 L (3.5-5.1) mmol/L BUN 24 H (7-17) mg/dL Creatinine 1.11 H 1.10 H (0.52-1.04) mg/dL Glucose 120 H 110 H (74-99) mg/dL Assessment and Plan Assessment: Hypertensive urgency Essential hypertension, Chest pain, rule out cardiac causes Mild kidney injury, unknown baseline and possibly acute. Consent hyperlipidemia Plan: This is a pleasant 72 years old female who presents because of hypertensive urgency and chest pain. Admits patient with cardiology consultation. Serial troponins and EKG. continue with blood pressure medication. lipid panel: Elevated. She was started on statin. Labs and medication were reviewed.. Continue same treatment. Continue with symptomatic treatment. Resume home medication. Monitor lytes and vitals. DVT and GI prophylaxis. Further recommendations of the clinical course of the patient DVT prophylaxis: Subcutaneous heparin GI Prophylaxis: Pepcid Prognosis is guarded
[2018-04-16] MEDS: hydrALAZINE HCL 25 MG TAB PO SCH ×2 (15:23→20:35)
--- NOTE | 2018-04-16 16:07 | PN ---
PROGRESS NOTE Mrs. Mariano has been hospitalized with an episode of accelerated hypertension. Her blood pressure control has improved. She feels well, but she is quite anxious and concerned that her blood pressure will go back up again. She was hypertensive, has been on medications, but these were tapered since her pressure was better. She is resting comfortably without symptoms. I reviewed her blood pressure profile and noted that in the night her pressures were slightly higher, but overall pressures are quite good. I am recommending that we add hydralazine 25 mg t.i.d. and decrease the metoprolol from 25 mg b.i.d. to daily only and continue amlodipine, increase activity. If her blood pressure is well controlled, she can be discharged later on today or tomorrow. I have advised her regarding low-salt diet. Patient uses a lot of canned soups and foods and I have discouraged her from using these. If blood pressure is well controlled, she can be discharged, and once blood pressure control is optimized, she can have a stress test as an outpatient. She will be seeing Dr. Weinstein in the outpatient setting. MMODL / IJN: [id number] /
[2018-04-17] MEDS ORDERED: AMOXIC-POT CLAV 875-125MG 1 EACH TAB PO SCH (09:00)
[2018-04-17] MEDS ORDERED: METOPROLOL TARTRATE 25 MG TAB PO SCH (09:00)
[2018-04-17] MEDS: ASPIRIN 81 MG PO SCH (09:05)
[2018-04-17] MEDS: HYDROCHLOROTHIAZIDE 25 MG TAB PO SCH (09:05)
[2018-04-17] MEDS: hydrALAZINE HCL 25 MG TAB PO SCH ×2 (09:06→14:28)
[2018-04-17] MEDS: amLODIPine 10 MG TAB PO SCH (09:11)
[2018-04-17 11:25] VITALS: RESP 20; TEMP 97.5
[2018-04-17 14:07] VITALS: BP 144/82; PULSE 63
--- NOTE | 2018-04-17 15:05 | PN ---
PROGRESS NOTE This is a lady with accelerated hypertension who is doing remarkably well. BP control is excellent. Her vitals are stable exam. She is ambulating without symptoms. S1, S2 heard normally. Lungs are clear. Abdomen and lower extremity exam is unchanged. Plan is to increase activity and discharge her on current medical regimen and she will see Dr. Weinstein in one week. MMODL / IJN: [id number] /
--- NOTE | 2018-04-17 23:59 | P.DS ---
Providers Date of admission: 04/14/18 13:09 Attending physician: Cordell Lakhani MD Consults: 04/14/18 13:10 Consult Physician Urgent Consulting Provider: Thuan Madera Consult Reason/Comments: Uncontrolled hypertension, chest pain Do you want consulting provider notified?: Yes Primary care physician: Stated None Hospital Course: Dx: Hypertensive urgency Essential hypertension, Chest pain, resolved . outpt stress test is recommended for the pt Mild acute kidney injury, resolved hyperlipidemia Hospital course This is a pleasant 72 years old female with no significant past medical history. Presents because of high blood pressure. Patient knew About her high blood pressure when she visited her dentist for her right upper tooth extraction. It was noticed that she had high blood pressure. Her son check her blood pressure in the morning it was 220/120, so she decided to come to emergency room. Patient also complained from chest pain one day earlier that lasted for short time. pt has been evaluated by gin feeder. four antihypertensive medications were added. her BP is better controlled and stabilized. pt is chest pain free. pt was cleared by cardiology for discharge. gin feeder recommended outpt stress test. i discussed these recommendation with pt and her son Mr. Harris at bed side and they verbalized understanding and acceptance. pt did not want to medical staff to make appointment for her earlier during the week , pt is been discharged over the weekend, pt and son agree with making appointment themselves pt was cleared for discharge by cardiology team . Pt was instructed about the problems and management plan and Pt verbalized understanding and acceptance Pt is found stable and can be discharged to the community but needs follow up as outpt Discharge exam Gen.: Patient alert awake and oriented X 3, NOT IN DISTRESS CVS: s1-s2, RRR, no murmur CHEST:bilateral CTA, no wheezing or crepitation Abdomen: Soft, no tenderness, no distention, positive bowel sounds Extremities: No leg edema or induration gait: normal time spent : more than 35 min Patient Condition at Discharge: Fair Plan - Discharge Summary Discharge Rx Participant: No New Discharge Prescriptions: New Acetaminophen Tab [Tylenol] 650 mg PO Q6HR PRN tab PRN Reason: Fever And/ Or Pain amLODIPine [Norvasc] 10 mg PO DAILY #30 tab Amoxic-Pot Clav 875-125Mg [Augmentin 875-125] 1 each PO Q12HR 3 Days #6 tab Aspirin 81 mg PO DAILY #30 chew hydrALAZINE HCL [Apresoline] 25 mg PO TID #90 tab Hydrochlorothiazide [Hydrodiuril] 25 mg PO DAILY #30 tab Metoprolol Tartrate [Lopressor] 25 mg PO DAILY #30 tab Nitroglycerin Sl Tabs [Nitrostat] 0.4 mg SUBLINGUAL Q5M PRN #15 tab PRN Reason: Chest Pain Discharge Medication List Acetaminophen Tab [Tylenol] 650 mg PO Q6HR PRN tab 04/17/18 [Rx] Amoxic-Pot Clav 875-125Mg [Augmentin 875-125] 1 each PO Q12HR 3 Days #6 tab 01/25 [Rx] Aspirin 81 mg PO DAILY #30 chew 04/17/18 [Rx] Hydrochlorothiazide [Hydrodiuril] 25 mg PO DAILY #30 tab 04/17/18 [Rx] Metoprolol Tartrate [Lopressor] 25 mg PO DAILY #30 tab 04/17/18 [Rx] Nitroglycerin Sl Tabs [Nitrostat] 0.4 mg SUBLINGUAL Q5M PRN #15 tab 04/17/18 [Rx ] amLODIPine [Norvasc] 10 mg PO DAILY #30 tab 04/17/18 [Rx] hydrALAZINE HCL [Apresoline] 25 mg PO TID #90 tab 04/17/18 [Rx] Follow up Appointment(s)/Referral(s): Adrián Stokes DO [Doctor of Osteopathic Medicine] - 1 Week (PLEASE CALL OFFICE WEDNESDAY FOR POST HOSPITAL APPOINTMENT TIME) Krystle Weinstein MD [STAFF PHYSICIAN] - 1 Week (PLEASE CALL OFFICE Wednesday FOR APPOINTMENT TIME THIS WEEK we recommend to do stress test with your gin feeder ) Patient Instructions/Handouts: DASH Eating Plan (DC), Hypertension (DC) Activity/Diet/Wound Care/Special Instructions: Please call [facility] in order to find a physician: #[phone] cardiac diet. low salt diet activity is limited till you see your doctor we recommend you follow up with your dentist in 2-3 days Discharge Disposition: HOME SELF-CARE
== END 2018-04-17 14:51 | disposition home or self-care (01) | DRG 305 ==
LOC: EC 10:49 → 3SCARD 13:09
PROVIDERS: ADMIT Internal Medicine; ATTEND Internal Medicine
DX: I16.0 Hypertensive urgency (principal); I11.9 Hypertensive heart disease without heart failure; E78.5 Hyperlipidemia, unspecified; M19.90 Unspecified osteoarthritis, unspecified site; M54.9 Dorsalgia, unspecified; M54.2 Cervicalgia; R07.89 Other chest pain; Z87.891 Personal history of nicotine dependence; Z98.51 Tubal ligation status; Z90.49 Acquired absence of other specified parts of digestive tract; Z82.3 Family history of stroke; Z82.49 Family history of ischemic heart disease and other diseases of the circulatory system; N28.9 Disorder of kidney and ureter, unspecified
CPT/HCPCS: 36415; 71046; 80048; 80053; 80061; 82550; 82553; 83735; 84484; 85025; 85049; 85610; 85730; 93005; 93306; 94760; 96361; 96365; 96375; 96376; 99285